=== PATIENT | male | born 1960 | race Two or more races ===

== ENCOUNTER 2024-09-18 13:42 | Inpatient (IN) | payer MEDICARE, OTHER ==
[~2024-09-18] VITALS: Ht 177.8 cm; Wt 74.8 kg
[2024-09-18 14:16] LABS: PLATELET COUNT (AUTO) 271 K/uL (150-450); RED BLOOD CELL COUNT(AUTO) 5.75 MIL/uL (4.5-6.0); RED CELL DISTRIBUTION WIDTH 15.9 % (11.5-15.0); WHITE BLOOD COUNT (AUTO) 9.4 K/uL (4.3-11.0)
[2024-09-18 14:23] LABS: CALCIUM, SERUM 8.8 mg/dL (8.5-10.1); CREATININE 1.0 mg/dL (0.6-1.3); UREA NITROGEN, BLOOD 14 mg/dL (7-18)
[2024-09-18 14:24] LABS: SODIUM SERUM 133 mmol/L (136-145)
[2024-09-18 14:29] LABS: ALCOHOL, BLOOD < 3 mg/dL (0-10); ASPARTATE AMINOTRANSFERASE 20 U/L (15-37); TOTAL PROTEIN, SERUM 7.5 g/dL (6.4-8.2)
[2024-09-18 14:41] LABS: APPEARANCE,URINE CLEAR (CLEAR); BLOOD, URINE NEGATIVE Ery/uL (NEGATIVE); LEUKOCYTE ESTERASE ,URINE NEGATIVE (NEGATIVE); NITRITE, URINE NEGATIVE (NEGATIVE); UGLUCOSE NEGATIVE (NEGATIVE)
[2024-09-18] MEDS ORDERED: OLANZAPINE 10 MG VIAL IM ONE (14:46)
[2024-09-18] MEDS ORDERED: GABA300C PO (14:51)
[2024-09-18] MEDS ORDERED: ACET-868 PO (14:51)
[2024-09-18] MEDS ORDERED: THIA100T70 PO (14:51)
[2024-09-18] MEDS ORDERED: FOLI0.4T6 PO (14:51)
[2024-09-18] MEDS ORDERED: MAG-5 PO (14:51)
[2024-09-18] MEDS ORDERED: METH-647 PO (14:51)
[2024-09-18] MEDS ORDERED: RISP2TAB85 PO (14:51)
[2024-09-18 14:52] LABS: AMPHETAMINE, URINE NEGATIVE (NEGATIVE); BARBITURATE, URINE NEGATIVE (NEGATIVE); BENZODIAZEPINE, URINE NEGATIVE (NEGATIVE); CANNABINOID, URINE NEGATIVE (NEGATIVE); COCCAINE, URINE NEGATIVE (NEGATIVE); OPIATE, URINE NEGATIVE (NEGATIVE)
[2024-09-18] MEDS: OLANZAPINE 10 MG VIAL IM ONE (14:55)
[2024-09-18 15:00] VITALS: BP 151/86; TEMP 98; O2SAT 100
[2024-09-18] MEDS ORDERED: LORAZEPAM INJ 2 MG/ML VIAL ONE (16:20)
[2024-09-18] MEDS: LORAZEPAM INJ 2 MG/ML VIAL IM ONE (16:26)
[2024-09-18] MEDS ORDERED: ACETAMINOPHEN 325 MG TABLET PO PRN (17:30)
[2024-09-18] MEDS ORDERED: MAGNESIUM HYDROXIDE 30 ML UDC PO PRN (17:30)
[2024-09-18] MEDS ORDERED: METHOCARBAMOL (500MG) 500 MG TABLET PO PRN (17:30)
[2024-09-18] MEDS ORDERED: MAG HYDROX/AL HYDROX/SIMETH 30 ML UDC PO PRN (17:30)
[2024-09-18] MEDS ORDERED: TEMAZEPAM 7.5 MG CAPSULE PO PRN (17:30)
[2024-09-18] MEDS: BLOOD SUGAR DIAGNOSTIC 1 EACH STRIP IN ONE (17:39)
[2024-09-18] MEDS: NICOTINE PATCH (21MG) 21 MG PATCH.TD24 TD ONE (23:14)
[2024-09-19 08:00] VITALS: BP 136/90; TEMP 98.5; O2SAT 96
[2024-09-19] MEDS: GABAPENTIN 300 MG CAPSULE PO SCH (08:26)
[2024-09-19] MEDS: FOLIC ACID 1 MG TABLET PO SCH (08:26)
[2024-09-19] MEDS: THIAMINE HCL 100 MG TABLET PO SCH (08:26)
[2024-09-19] MEDS: NICOTINE PATCH (21MG) 21 MG PATCH.TD24 TD SCH (08:27)
[2024-09-19] MEDS: HALOPERIDOL LACTATE INJ 5 MG/ML VIAL IM ONE (09:16)
[2024-09-19] MEDS: LORAZEPAM INJ 2 MG/ML VIAL IM ONE (09:17)
[2024-09-19] MEDS: OXCARBAZEPINE 150 MG TABLET PO SCH (13:00)
[2024-09-19 16:00] VITALS: BP 102/62; TEMP 98; O2SAT 96
[2024-09-19 20:59] VITALS: BP 137/85; TEMP 98.3; O2SAT 97
[2024-09-20 10:42] LABS: CREATININE 0.7 mg/dL (0.6-1.3); LDL 56.0 mg/dL (0-99)
[2024-09-20 10:48] LABS: IRON, SERUM 110.0 ug/dl (50-175)
[2024-09-20 16:00] VITALS: BP 145/86; TEMP 98; O2SAT 95
[2024-09-20 20:12] VITALS: BP 144/96; TEMP 98; O2SAT 95
[2024-09-20] MEDS: MUPIROCIN OINT 2% 22 GM TUBE NS SCH (20:44)
[2024-09-21 08:00] VITALS: BP 105/76; TEMP 98.2; O2SAT 98
[2024-09-21 15:23] VITALS: BP 110/75; TEMP 98.6; O2SAT 98
[2024-09-21 20:45] VITALS: BP 120/80; TEMP 98.4; O2SAT 97
[2024-09-22 08:00] VITALS: BP 126/84; TEMP 97.8; O2SAT 98
[2024-09-22 16:00] VITALS: BP 111/76; TEMP 97.7; O2SAT 97
[2024-09-22 20:30] VITALS: BP 115/77; TEMP 97.8; O2SAT 96
[2024-09-23 08:00] VITALS: BP 107/78; TEMP 97.8; O2SAT 99
[2024-09-23 16:02] VITALS: BP 124/73; TEMP 97.8; O2SAT 95
[2024-09-23 20:15] VITALS: BP 110/74; TEMP 97.8; O2SAT 97
[2024-09-24 08:00] VITALS: BP 101/72; TEMP 98; O2SAT 98
[2024-09-24 16:00] VITALS: BP 120/76; TEMP 98.6; O2SAT 97
[2024-09-24 19:56] VITALS: BP 117/84; TEMP 97.9; O2SAT 98
[2024-09-25 08:00] VITALS: BP 111/68; TEMP 97.8; O2SAT 95
[2024-09-25 19:51] VITALS: BP 114/82; TEMP 98.1; O2SAT 96
[2024-09-26 08:00] VITALS: BP 137/90; TEMP 97.6; O2SAT 99
[2024-09-26 21:44] VITALS: BP 109/73; TEMP 98.2; O2SAT 96
[2024-09-27] MEDS: LORAZEPAM INJ 2 MG/ML VIAL IM ONE (09:48)
[2024-09-27] MEDS: HALOPERIDOL LACTATE INJ 5 MG/ML VIAL IM ONE (09:49)
[2024-09-28] MEDS: HALOPERIDOL LACTATE INJ 5 MG/ML VIAL IM STA (12:17)
[2024-09-28] MEDS: LORAZEPAM INJ 2 MG/ML VIAL IM STA (12:17)
[2024-09-28 20:16] VITALS: BP 107/77; TEMP 98.2; O2SAT 97
[2024-09-29 08:00] VITALS: BP 120/70; TEMP 98.7; O2SAT 99
[2024-09-29] MEDS: OLANZAPINE 10 MG VIAL IM ONE ×2 (10:36→21:03)
[2024-09-29] MEDS ORDERED: OXCARBAZEPINE 150 MG TABLET PO SCH (13:00)
[2024-09-29 16:00] VITALS: BP 133/77; TEMP 98.7; O2SAT 100
[2024-09-29 20:11] VITALS: BP 101/80; TEMP 98.6; O2SAT 98
[2024-09-29] MEDS: OXCARBAZEPINE 150 MG TABLET PO SCH (21:00)
[2024-09-30 08:07] VITALS: BP 135/91; TEMP 98; O2SAT 98
[2024-09-30] MEDS: OXCARBAZEPINE 150 MG TABLET PO SCH (09:00)
[2024-09-30] MEDS: OLANZAPINE 10 MG VIAL IM ONE (11:05)
[2024-09-30] MEDS: PALIPERIDONE PALMITATE 234 MG/1.5 ML SYRINGE IM ONE (14:55)
[2024-09-30 16:04] VITALS: BP 104/85; TEMP 97.8; O2SAT 96
[2024-09-30 20:13] VITALS: BP 135/89; TEMP 98; O2SAT 98
[2024-10-01 08:00] VITALS: BP 107/80; TEMP 98.1; O2SAT 98
[2024-10-01 16:00] VITALS: BP 109/82; TEMP 98.7; O2SAT 97
[2024-10-02 08:00] VITALS: BP 157/79; TEMP 97.9; O2SAT 99
[2024-10-02] MEDS ORDERED: OLANZAPINE 10 MG VIAL IM PRN ×2 (13:00→18:00)
[2024-10-02 16:00] VITALS: BP 137/90; TEMP 97.5; O2SAT 99
[2024-10-02] MEDS: OXCARBAZEPINE 150 MG TABLET PO SCH ×2 (16:27→21:15)
[2024-10-03 08:00] VITALS: BP 113/89; TEMP 97.8; O2SAT 98
[2024-10-03] MEDS: OXCARBAZEPINE 150 MG TABLET PO SCH (13:10)
[2024-10-03 16:02] VITALS: BP 126/70; TEMP 99.3; O2SAT 96
[2024-10-03 22:56] VITALS: BP 140/80; TEMP 97.7; O2SAT 95
[2024-10-04 08:00] VITALS: BP 137/96; TEMP 97.7; O2SAT 99
[2024-10-04 16:00] VITALS: BP 119/83; TEMP 97.5; O2SAT 100
[2024-10-04 20:15] VITALS: BP 142/79; TEMP 98.1; O2SAT 98
[2024-10-05 08:00] VITALS: BP 115/71; TEMP 98.6; O2SAT 96
[2024-10-05] MEDS: LORAZEPAM 0.5 MG TABLET PO PRN (10:15)
[2024-10-05 16:00] VITALS: BP 124/76; TEMP 98.2; O2SAT 95
[2024-10-05] MEDS ORDERED: PALIPERIDONE PALMITATE 117 MG/0.75 ML SYRINGE IM ONE (17:00)
[2024-10-05] MEDS: PALIPERIDONE PALMITATE 156 MG/ML SYRINGE IM ONE (20:10)
[2024-10-05 20:17] VITALS: BP 103/67; TEMP 98; O2SAT 99
[2024-10-06 07:41] LABS: PLATELET COUNT (AUTO) 253 K/uL (150-450); RED BLOOD CELL COUNT(AUTO) 5.61 MIL/uL (4.5-6.0); RED CELL DISTRIBUTION WIDTH 15.0 % (11.5-15.0); WHITE BLOOD COUNT (AUTO) 8.2 K/uL (4.3-11.0)
[2024-10-06 08:00] VITALS: BP 114/70; TEMP 97.8; O2SAT 98
[2024-10-06 08:11] LABS: CALCIUM, SERUM 9.1 mg/dL (8.5-10.1); CREATININE 0.7 mg/dL (0.6-1.3); SODIUM SERUM 125.0 mmol/L (136-145); UREA NITROGEN, BLOOD 16.0 mg/dL (7-18)
[2024-10-06] MEDS: BENZTROPINE MESYLATE (1 MG) 1 MG TABLET PO SCH (13:00)
[2024-10-06 16:00] VITALS: BP 100/56; TEMP 98.7; O2SAT 98
[2024-10-06 16:19] LABS: BASOPHILS % (MANUAL) 0 % (0.0-2.0); EOSINOPHILS % (MANUAL) 8 % (0-4); LYMPHOCYTES % (MANUAL) 22 % (16-48); MONOCYTES % (MANUAL) 11 % (0-11.0); NEUTROPHILS % (MANUAL) 59 (42-76); PLATELET ESTIMATE ADEQUATE
[2024-10-06 20:23] VITALS: BP 99/74; TEMP 97.9; O2SAT 100
[2024-10-07 07:56] LABS: PLATELET COUNT (AUTO) 248 K/uL (150-450); RED BLOOD CELL COUNT(AUTO) 5.79 MIL/uL (4.5-6.0); RED CELL DISTRIBUTION WIDTH 15.4 % (11.5-15.0); WHITE BLOOD COUNT (AUTO) 9.6 K/uL (4.3-11.0)
[2024-10-07 08:00] VITALS: BP 94/70; TEMP 98.2; O2SAT 100
[2024-10-07 08:43] LABS: CALCIUM, SERUM 8.9 mg/dL (8.5-10.1); CREATININE 0.7 mg/dL (0.6-1.3); SODIUM SERUM 125.0 mmol/L (136-145); UREA NITROGEN, BLOOD 20.0 mg/dL (7-18)
[2024-10-07] MEDS: OXCARBAZEPINE 150 MG TABLET PO SCH (09:11)
[2024-10-07 16:06] VITALS: BP 115/62; TEMP 97.7; O2SAT 97
[2024-10-07 20:01] VITALS: BP 142/110; TEMP 97.7; O2SAT 100
[2024-10-08 07:53] LABS: CALCIUM, SERUM 8.9 mg/dL (8.5-10.1); CREATININE 0.7 mg/dL (0.6-1.3); SODIUM SERUM 129.0 mmol/L (136-145); UREA NITROGEN, BLOOD 22.0 mg/dL (7-18)
[2024-10-08 08:19] VITALS: BP 104/78; TEMP 97.3; O2SAT 100
== END 2024-10-08 16:09 | DRG 885 ==
LOC: ER 13:53 → GPS 16:07 → GPSOV 10-08 06:01
PROVIDERS: ADMIT Psychiatry & Neurology Psychosomatic Medicine; ATTEND Nurse Practitioner Family
DX: F29 Unspecified psychosis not due to a substance or known physiological condition (principal); E87.1 Hypo-osmolality and hyponatremia; F03.94 Unspecified dementia, unspecified severity, with anxiety; F03.92 Unspecified dementia, unspecified severity, with psychotic disturbance; E11.40 Type 2 diabetes mellitus with diabetic neuropathy, unspecified; F10.10 Alcohol abuse, uncomplicated; F17.210 Nicotine dependence, cigarettes, uncomplicated; F32.A Depression, unspecified; I10 Essential (primary) hypertension; Z71.6 Tobacco abuse counseling; Z91.199 Patient's noncompliance with other medical treatment and regimen due to unspecified reason; Z20.822 Contact with and (suspected) exposure to COVID-19; F41.9 Anxiety disorder, unspecified; D50.9 Iron deficiency anemia, unspecified; I45.10 Unspecified right bundle-branch block; Z89.421 Acquired absence of other right toe(s); S81.812A Laceration without foreign body, left lower leg, initial encounter; X58.XXXA Exposure to other specified factors, initial encounter; Y93.9 Activity, unspecified; Y92.009 Unspecified place in unspecified non-institutional (private) residence as the place of occurrence of the external cause; Z73.6 Limitation of activities due to disability
CPT/HCPCS: 36415; 73030-TC; 80048-TC; 80061-TC; 80076-TC; 82565-TC; 82607-TC; 82728-TC; 83540-TC; 83735-TC; 83935-TC; 84439-TC; 84443-TC; 85025-TC; 87081-TC; G0480; J1630; J2060; J2426; J3490

== ENCOUNTER 2025-01-30 01:20 | Inpatient (IN) | payer MEDICARE, OTHER ==
[~2025-01-30] VITALS: Ht 180.3 cm; Wt 81.6 kg
[~2025-01-30 01:20] MED LIST: ACET-868 PO; FOLI0.4T6 PO; GABA300C PO; MAG-5 PO; METH-647 PO; RISP2TAB85 PO; THIA100T70 PO
[2025-01-30] MEDS ORDERED: METHOCARBAMOL (500MG) 500 MG TABLET PO PRN (02:00)
[2025-01-30 02:16] LABS: PLATELET COUNT (AUTO) 266 K/uL (150-450); RED BLOOD CELL COUNT(AUTO) 5.44 MIL/uL (4.5-6.0); RED CELL DISTRIBUTION WIDTH 15.7 % (11.5-15.0); WHITE BLOOD COUNT (AUTO) 8.4 K/uL (4.3-11.0)
[2025-01-30 02:22] LABS: APPEARANCE,URINE CLEAR (CLEAR); BLOOD, URINE TRACE-INTA Ery/uL (NEGATIVE); LEUKOCYTE ESTERASE ,URINE NEGATIVE (NEGATIVE); NITRITE, URINE NEGATIVE (NEGATIVE); UGLUCOSE NEGATIVE (NEGATIVE)
[2025-01-30 02:23] LABS: CALCIUM, SERUM 8.6 mg/dL (8.5-10.1); CREATININE 0.8 mg/dL (0.6-1.3); SODIUM SERUM 138 mmol/L (136-145); UREA NITROGEN, BLOOD 15 mg/dL (7-18)
[2025-01-30 02:30] LABS: ASPARTATE AMINOTRANSFERASE 25 U/L (15-37); TOTAL PROTEIN, SERUM 7.0 g/dL (6.4-8.2)
[2025-01-30 02:32] LABS: ADD URINE CULTURE NO; SQUAMOUS EPITHELIAL CELL,UR 0-2 /HPF (None Seen)
[2025-01-30] MEDS ORDERED: BENZ1TAB7 PO (02:32)
[2025-01-30] MEDS ORDERED: NICO-676 TP (02:32)
[2025-01-30 02:33] LABS: AMPHETAMINE, URINE NEGATIVE (NEGATIVE); BARBITURATE, URINE NEGATIVE (NEGATIVE); BENZODIAZEPINE, URINE NEGATIVE (NEGATIVE); CANNABINOID, URINE NEGATIVE (NEGATIVE); COCCAINE, URINE NEGATIVE (NEGATIVE); OPIATE, URINE NEGATIVE (NEGATIVE)
[2025-01-30] MEDS ORDERED: LORAZEPAM INJ 2 MG/ML VIAL ONE (03:34)
[2025-01-30] MEDS: LORAZEPAM INJ 2 MG/ML VIAL IM ONE (03:40)
[2025-01-30 08:00] VITALS: BP 131/54; TEMP 97.7; O2SAT 99
[2025-01-30] MEDS ORDERED: MAG HYDROX/AL HYDROX/SIMETH 30 ML UDC PO PRN (09:00)
[2025-01-30] MEDS ORDERED: MAGNESIUM HYDROXIDE 30 ML UDC PO PRN (09:00)
[2025-01-30] MEDS: BLOOD SUGAR DIAGNOSTIC 1 EACH STRIP IN ONE (09:34)
[2025-01-30] MEDS: NICOTINE PATCH (21MG) 21 MG PATCH.TD24 TD SCH (09:56)
[2025-01-30] MEDS: FOLIC ACID 1 MG TABLET PO SCH (09:58)
[2025-01-30] MEDS: THIAMINE HCL 100 MG TABLET PO SCH (09:58)
[2025-01-30 16:00] VITALS: BP 110/81; TEMP 98; O2SAT 92
[2025-01-30 20:15] VITALS: BP 115/87; TEMP 98.4; O2SAT 95
[2025-01-30] MEDS: GABAPENTIN 300 MG CAPSULE PO SCH (20:21)
[2025-01-31 08:00] VITALS: BP 116/76; TEMP 98; O2SAT 98
[2025-01-31] MEDS: LORAZEPAM 0.5 MG TABLET PO PRN (09:07)
[2025-01-31 13:06] LABS: ASPARTATE AMINOTRANSFERASE 21.0 U/L (15-37); CALCIUM, SERUM 8.5 mg/dL (8.5-10.1); CREATININE 0.8 mg/dL (0.6-1.3); IRON, SERUM 105 ug/dl (50-175); SODIUM SERUM 136.0 mmol/L (136-145); TOTAL PROTEIN, SERUM 6.6 g/dL (6.4-8.2); UREA NITROGEN, BLOOD 14.0 mg/dL (7-18)
[2025-01-31 13:19] LABS: LDL 79 mg/dL (0-99)
[2025-01-31 16:08] VITALS: BP 103/68; TEMP 98.7; O2SAT 98
[2025-01-31 20:00] VITALS: BP 120/94; TEMP 98.7; O2SAT 96
[2025-01-31 21:43] VITALS: TEMP 98.7
[2025-02-01 08:00] VITALS: BP 109/68; TEMP 97.9; O2SAT 98
[2025-02-01 16:00] VITALS: BP 106/76; TEMP 97.7; O2SAT 98
[2025-02-01 21:04] VITALS: BP 116/59; TEMP 98; O2SAT 100
[2025-02-01] MEDS: TEMAZEPAM 7.5 MG CAPSULE PO PRN (22:39)
[2025-02-02 08:00] VITALS: BP 139/95; TEMP 98.6; O2SAT 98
[2025-02-02] MEDS: ENSURE ENLIVE CHOC 237 ML CAN PO SCH (12:11)
[2025-02-02 16:00] VITALS: BP 128/84; TEMP 98.8; O2SAT 99
[2025-02-02 20:30] VITALS: BP 102/72; TEMP 98.6; O2SAT 100
[2025-02-03 08:00] VITALS: BP 117/72; TEMP 97.7; O2SAT 99
[2025-02-03 09:40] VITALS: BP 117/72; TEMP 97.7; O2SAT 99
[2025-02-03 16:00] VITALS: BP 105/72; TEMP 97.7; O2SAT 96
[2025-02-03 17:09] VITALS: BP 105/72; TEMP 97.7; O2SAT 96
[2025-02-03 20:04] VITALS: BP 107/63; TEMP 98.4; O2SAT 96
[2025-02-04 08:00] VITALS: BP 100/66; TEMP 98.7; O2SAT 98
[2025-02-04 16:00] VITALS: BP 102/57; TEMP 98.6; O2SAT 98
[2025-02-04] MEDS: ACETAMINOPHEN 325 MG TABLET PO PRN (17:59)
[2025-02-04 20:00] VITALS: BP 102/60; TEMP 97.7; O2SAT 100
[2025-02-04 20:10] VITALS: BP 102/60; TEMP 97.7; O2SAT 100
[2025-02-05 08:00] VITALS: BP 117/73; TEMP 97.8; O2SAT 98
[2025-02-05 16:00] VITALS: BP 100/68; TEMP 97.5; O2SAT 97
[2025-02-05 17:00] VITALS: BP 131/70; TEMP 97.5; O2SAT 97
[2025-02-06 08:00] VITALS: BP 100/52; TEMP 98; O2SAT 100
[2025-02-06 11:08] LABS: PLATELET COUNT (AUTO) 285 K/uL (150-450); RED BLOOD CELL COUNT(AUTO) 5.71 MIL/uL (4.5-6.0); RED CELL DISTRIBUTION WIDTH 15.7 % (11.5-15.0); WHITE BLOOD COUNT (AUTO) 6.1 K/uL (4.3-11.0)
[2025-02-06 11:23] LABS: ERYTHROCYTE SEDIMENTATION RATE 12 MM/HR (0-20)
[2025-02-06 16:00] VITALS: BP 107/72; TEMP 98.3; O2SAT 98
[2025-02-06 21:47] VITALS: BP 118/72; TEMP 98.3; O2SAT 96
[2025-02-07 08:00] VITALS: BP 136/68; TEMP 97.7; O2SAT 97
[2025-02-07 16:12] VITALS: BP 100/56; TEMP 97.7; O2SAT 96
[2025-02-07 22:00] VITALS: BP 90/56; TEMP 97.7; O2SAT 96
[2025-02-08 08:00] VITALS: BP 127/75; TEMP 98.2; O2SAT 97
[2025-02-08 16:00] VITALS: BP 110/72; TEMP 98.7; O2SAT 97
[2025-02-08 20:13] VITALS: BP 102/61; TEMP 98.1; O2SAT 100
[2025-02-09 08:00] VITALS: BP 125/68; TEMP 98.4; O2SAT 98
[2025-02-09 16:00] VITALS: BP 119/82; TEMP 98.8; O2SAT 98
[2025-02-09 19:39] VITALS: BP 118/60; TEMP 98.1; O2SAT 98
[2025-02-09] MEDS ORDERED: OLANZAPINE 2.5 MG TABLET ONE (23:17)
[2025-02-09] MEDS: OLANZAPINE 2.5 MG TABLET PO SCH (23:19)
[2025-02-10 08:00] VITALS: BP 113/62; TEMP 97.8; O2SAT 97
[2025-02-10 16:08] VITALS: BP 122/74; TEMP 98.6; O2SAT 97
[2025-02-10 20:11] VITALS: BP 110/56; TEMP 97.9; O2SAT 98
[2025-02-10] MEDS ORDERED: OLANZAPINE 5 MG TABLET PO SCH (22:00)
[2025-02-11 08:00] VITALS: BP 117/80; TEMP 98.7; O2SAT 97
== END 2025-02-11 13:30 | DRG 885 ==
LOC: ER 01:28 → GPS 08:36
PROVIDERS: ADMIT Psychiatry & Neurology Psychosomatic Medicine
DX: F29 Unspecified psychosis not due to a substance or known physiological condition (principal); G93.41 Metabolic encephalopathy; M87.851 Other osteonecrosis, right femur; E11.9 Type 2 diabetes mellitus without complications; F25.0 Schizoaffective disorder, bipolar type; D50.9 Iron deficiency anemia, unspecified; F10.90 Alcohol use, unspecified, uncomplicated; F32.A Depression, unspecified; I10 Essential (primary) hypertension; M84.451K Pathological fracture, right femur, subsequent encounter for fracture with nonunion; F41.9 Anxiety disorder, unspecified; Z73.6 Limitation of activities due to disability; G31.84 Mild cognitive impairment of uncertain or unknown etiology; M25.551 Pain in right hip
CPT/HCPCS: 36415; 73502; 73700-TC; 80048-TC; 80053-TC; 80061-TC; 80076-TC; 81001; 82728-TC; 83540-TC; 85025-TC; 85652-TC; 86140-TC; 87081-TC; 97116-TC; 97530-TC; J2060